=== PATIENT | female | born 1965 | race Hispanic/Latino ===

== ENCOUNTER → 2021-05-04 | Outpatient (CLI) | payer MEDICARE | LOC: RAD 10:22 | PROVIDERS: ATTEND Internal Medicine | DX: Z01.818 Encounter for other preprocedural examination (principal); Z98.49 Cataract extraction status, unspecified eye | CPT/HCPCS: 71046 ==

== ENCOUNTER → 2023-11-15 | Outpatient (REF) | payer MEDICARE | LOC: US 08:05 | PROVIDERS: ATTEND Nurse Practitioner | DX: R10.84 Generalized abdominal pain (principal); K29.70 Gastritis, unspecified, without bleeding; K51.20 Ulcerative (chronic) proctitis without complications; K59.04 Chronic idiopathic constipation; K59.09 Other constipation; Z68.28 Body mass index [BMI] 28.0-28.9, adult; Z86.010 Personal history of colon polyps | CPT/HCPCS: 76700; 76856 ==